=== PATIENT | female | born 1990 | race Caucasian/White ===

== ENCOUNTER 2021-10-12 02:40 | Outpatient (CLI) | payer MEDICAID | END 2021-10-12 02:41 | disposition critical access hospital (66) | LOC: EMS 02:40 | DX: R20.0 Anesthesia of skin (principal); R20.2 Paresthesia of skin; R11.10 Vomiting, unspecified; R06.4 Hyperventilation | CPT/HCPCS: A0425; A0429; A0999 ==

== ENCOUNTER 2021-10-12 02:56 | Emergency (ER) | payer MEDICAID ==
--- NOTE | 2021-10-12 02:57 | ED Physician Documentation ---
History of Present Illness - Stated complaint Stated Complaint: NUMBNESS, TINGLING - History obtained from History obtained from: Patient, EMS - History of Present Illness Timing: Today Pain level max: 0 Pain level now: 0 Improved by: no ameliorating factors Worsened by: no exacerbating factors - Additonal information Additional information: BIBA c/o numbness and tingling of hands, feet, and face and, at times, more wide- spread (body-wide) and nausea. She says she woke at approximately midnight ton ight with nausea and as the nausea was building, she developed the numbness and tingling. Denies h/o similar symptoms. EMS noted RR 30s and ST 130s on quality assurance monitor. Patient is visiting [facility] and is camping. She denies h/o similar symptoms. Review of Systems Constitutional: reports: Reviewed and negative Cardiac: reports: Reviewed and negative Respiratory: reports: Reviewed and negative GI: reports: Reviewed and negative : denies: Now EGA Neurologic: reports: Reviewed and negative Psychiatric: denies: Anxiety PD PAST MEDICAL HISTORY - Past Medical History Past Medical History: Yes Respiratory: Asthma - Present Medications Home Medications: Ambulatory Orders Medication Instructions Recorded Confirmed Albuterol Sulf [Ventolin Hfa 2 puffs IH Q4HR PRN 10/12/21 10/12/21 Inhaler] Fluticasone/Vilanterol [Breo 1 puffs IH DAILY 10/12/21 10/12/21 Ellipta 100-25 Mcg INH] LORazepam [Ativan] 0.5 - 1 mg PO BID PRN #20 tablet 10/12/21 Ondansetron Odt [Zofran Odt] 4 mg TL Q6H PRN #14 tablet 10/12/21 hydrOXYzine HCL [Hydroxyzine HCl] 25 mg PO TID PRN #20 tablet 10/12/21 - Allergies Allergies/Adverse Reactions: Allergies Allergy/AdvReac Type Severity Reaction Status Date / Time shellfish derived AdvReac Unknown Verified 10/12/21 03:19 PD ED PE NORMAL - Vitals Vital signs reviewed: Yes - General General: Alert and oriented X 3, No acute distress, Well developed/nourished - Neck Neck: Thyroid normal - Cardiac Cardiac: RRR, No murmur, No gallop, No rub - Respiratory Respiratory: No respiratory distress, Clear bilaterally - Abdomen Abdomen: Soft, Non tender - Derm Derm: Normal color, Warm and dry - Extremities Extremities: No edema Results - Vitals Vitals: Oxygen O2 Source Room air - Labs Labs: Laboratory Tests 10/12/21 10/12/21 10/12/21 03:26 03:26 04:10 WBC 8.7 RBC 4.59 Hgb 13.0 Hct 39.0 MCV 85.0 MCH 28.3 MCHC 33.3 RDW 12.6 Plt Count 254 MPV 11.9 H Neut # (Auto) 6.5 Lymph # (Auto) 1.4 L [place] # (Auto) 0.6 Eos # (Auto) 0.2 Baso # (Auto) 0.0 Absolute Nucleated RBC 0.00 Nucleated RBC % 0.0 Sodium 137 Potassium 3.2 L Chloride 106 Carbon Dioxide 17 L Anion Gap 14.0 H BUN 13 Creatinine 0.8 Estimated GFR (MDRD) 83 L Glucose 124 H Calcium 9.7 Urine HCG, Qual NEGATIVE PD MEDICAL DECISION MAKING - ED course Complexity details: reviewed results, re-evaluated patient, considered differential, d/w patient ED course: paresthesias of hands, feet, and around mouth that have progressed since onset at midnight to involve entirety of all four extremities, face, and carpo/pedal spasms (seen at times during initial exam). Lungs CTA bilaterally with 98-100% pulse ox on room air. no pain c/o including no chest pain, and no leg swelling per patient nor on exam. Lab test results notable for low CO2 , hypokalemia; these are c/w hyperventilation (with respiratory alkalosis causing potassium shift and thus mild hypokalemia). There are no reasonble alternative explanations at this time, such as PE, pneumonia, asthma. She is given IV lorazepam, 0.5 mg IV dose with modest improvement and thus given second dose of 1mg IV lorazepam with noticeable improvement ; she appears calm and has normal respiratory rate and pulse rate. She is in NAD on reevaluation prior to discharge. Test results reviewed with patient, suspected diagnosis of hyperventilation syndrome discussed, and return precautions reviewed. Departure - Departure Disposition: 01 Home, Self Care Clinical Impression: Hyperventilation syndrome Condition: Good Instructions: ED Hyperventilation Syndrome Prescriptions: LORazepam [Ativan] 0.5 - 1 mg PO BID PRN #20 tablet PRN Reason: Anxiety hydrOXYzine HCL [Hydroxyzine HCl] 25 mg PO TID PRN #20 tablet PRN Reason: Anxiety Ondansetron Odt [Zofran Odt] 4 mg TL Q6H PRN #14 tablet PRN Reason: Nausea / Vomiting Comments: There are no concerning findings on tonight's blood tests; as we discussed, you have a mildly low potassium level but this is very likely due to the rapid breathing and not reflective of a potassium deficiency. The potassium level will likely normalize as your breathing rate and depth return to normal. You should follow up with your primary care provider within the next 2-3 weeks, as they might recommend rechecking the potassium level. A prescription for lorazepam has been electronically submitted to the [facility] pharmacy in [place]. This is the medication given in the emergency department. It can cause drowsiness. Take it only as needed for anxiety. It is only meant for short-term use. I have also electronically submitted a prescription for ondansetron (anti-nausea medication) and hydroxyzine to the same pharmacy. The visatril is an anti- histamine, somewhat similar to benadryl but typically has a stronger sedating effect. The vistaril is an option that can be tried if you are having panic or anxiety that does not carry an addiction potential. Do not use both the vistaril and lorazepam within [address] if taking either of these medications. You can take the ondansetron (anti-nausea medication) with either of the other medications. You can drive if you are only taking the ondansetron Discharge Date/Time: 10/12/21 04:50
[2021-10-12] MEDS ORDERED: LORazepam 2 MG/ML VIAL IVP STA ×2 (03:14→03:34)
[2021-10-12] MEDS ORDERED: ONDANSETRON 4 MG/2 ML VIAL IVP STA (03:21)
[2021-10-12] MEDS ORDERED: SODIUM CHLORIDE 0.9% 1,000 ML IV STA (03:21)
[2021-10-12 03:32] LABS: BASOPHILS % (AUTO) 0.5 %; EOSINOPHILS # (AUTO) 0.2 10^3/uL (0.0-0.7); EOSINOPHILS % (AUTO) 1.8 %; LYMPHOCYTES # (AUTO) 1.4 10^3/uL (1.5-3.5); MEAN CORPUSCULAR HEMOGLOBIN 28.3 pg (27.0-31.0); MEAN CORPUSCULAR HGB CONC 33.3 g/dL (32.0-36.0); MEAN PLATELET VOLUME 11.9 fL (7.9-10.8); MONOCYTES # (AUTO) 0.6 10^3/uL (0.0-1.0); MONOCYTES % (AUTO) 6.4 %; NEUTROPHILS # (AUTO) 6.5 10^3/uL (1.5-6.6); NEUTROPHILS % (AUTO) 75.1 %; PLT - PLATELET COUNT 254 10^3/uL (130-450); RED BLOOD COUNT 4.59 10^6/uL (4.20-5.40); RED CELL DISTRIBUTION WIDTH 12.6 % (12.0-15.0); WHITE BLOOD COUNT 8.7 x10^3/uL (4.8-10.8)
[2021-10-12 03:39] LABS: CALCIUM 9.7 mg/dL (8.5-10.3); CREATININE 0.8 mg/dL (0.4-1.0); POTASSIUM 3.2 mmol/L (3.5-5.0)
[2021-10-12 04:27] LABS: HCG UR QUAL NEGATIVE
[2021-10-12 04:40] VITALS: BP 107/69
== END 2021-10-12 04:50 | disposition home or self-care (01) ==
LOC: ED 02:56
DX: F45.8 Other somatoform disorders (principal)
CPT/HCPCS: 36415; 80048; 81025; 85025; 96361; 96374; 96375; 99283